=== PATIENT | female | born 1975 | race Two or more races ===

== ENCOUNTER → 2017-05-10 16:59 | Outpatient (CLI) | payer OTHER ==
[~2017-05-10 16:59] MED LIST: ALEVE220 M1 PO; ALEVE220 MG; ANAPROX275 MG PO; ARAVA10 MG; ASA81 MG; FLONASE16 GM NS; HUMIRA40 MG/0.8 SQ; INTESTINEX1 CAP PO; INTESTINEX680 MG PO; LEFLUNOMIDE10 MG PO; LEFLUNOMIDE20 MG PO; MILLIPRED5 MG; MILLIPRED5 MG PO; NEURONTIN300 MG PO; NEXIUM20 M1 PO; PERCOCET 5/3251 TAB PO; PREVACID15 MG PO; PROTONIX40 MG PO; SEPTRA DS TABLE1 TAB PO; TOBREX 0.30.15 MG/DR OP; TOPROL XL50 MG PO; TRILEPTAL150 MG; TRILEPTAL300 MG PO; URETRON DS1 TAB PO; ZANTAC150 MG PO; ZANTAC300 MG PO; ZITHROMAX500 MG PO; ZYRTEC10 MG PO
== END | disposition home or self-care (01) ==
LOC: LAB 16:59
DX: N39.0 Urinary tract infection, site not specified (principal)

== ENCOUNTER 2017-05-11 12:44 | Outpatient (CLI) | payer OTHER | END 2017-05-11 12:53 | disposition home or self-care (01) | LOC: SONOGRAMA 12:44 | DX: N39.0 Urinary tract infection, site not specified (principal) ==

== ENCOUNTER 2017-05-15 12:44 | Inpatient (IN) | payer OTHER ==
[~2017-05-15] VITALS: Ht 160 cm; Wt 93.4 kg
[2017-05-22] MEDS ORDERED: PREDNISONE10 MG PO (14:36)
[2017-05-22] MEDS ORDERED: Intestinex CAP PO (14:37)
== END 2017-05-22 16:13 | disposition home or self-care (01) | DRG 690 ==
LOC: ER 12:44 → SEC-K 14:42 → SURH 14:42
PROC: BW21ZZZ Computerized Tomography (CT Scan) of Abdomen and Pelvis (ICD-10-PCS; principal; 2017-05-15)
PROC: 8E0ZXY6 Isolation (ICD-10-PCS; 2017-05-15)
DX: N10 Acute pyelonephritis (principal); M05.79 Rheumatoid arthritis with rheumatoid factor of multiple sites without organ or systems involvement; Z79.899 Other long term (current) drug therapy; K52.89 Other specified noninfective gastroenteritis and colitis; G50.0 Trigeminal neuralgia; Z79.52 Long term (current) use of systemic steroids; B37.3 Candidiasis of vulva and vagina

== ENCOUNTER → 2017-06-05 | Outpatient (CLI) | payer OTHER ==
[~2017-06-05] MED LIST changes: +Intestinex CAP PO; +PREDNISONE10 MG PO
== END | disposition home or self-care (01) ==
LOC: PPHC LAB 18:47
DX: Z01.89 Encounter for other specified special examinations (principal)

== ENCOUNTER → 2017-06-05 | Outpatient (CLI) | payer OTHER ==
[~2017-06-05] VITALS: Ht 152.4 cm; Wt 93.4 kg
== END | disposition home or self-care (01) ==
LOC: PPHC 18:11
DX: J11.1 Influenza due to unidentified influenza virus with other respiratory manifestations (principal); N39.0 Urinary tract infection, site not specified

== ENCOUNTER 2017-06-06 09:58 | Outpatient (CLI) | payer OTHER | END 2017-06-06 17:00 | disposition home or self-care (01) | LOC: RAD 09:58 | DX: J11.1 Influenza due to unidentified influenza virus with other respiratory manifestations (principal) ==

== ENCOUNTER 2017-09-07 13:46 | Emergency (ER) | payer OTHER ==
[~2017-09-07] VITALS: Ht 160 cm; Wt 93.4 kg
== END 2017-09-07 19:45 | disposition home or self-care (01) ==
LOC: ER 13:46
DX: R42 Dizziness and giddiness (principal)

== ENCOUNTER 2017-09-15 08:08 | Outpatient (CLI) | payer OTHER | END 2017-09-15 15:19 | disposition home or self-care (01) | LOC: SONOGRAMA 08:08 | DX: N92.1 Excessive and frequent menstruation with irregular cycle (principal); N84.0 Polyp of corpus uteri; D25.9 Leiomyoma of uterus, unspecified ==

== ENCOUNTER 2017-10-23 08:46 | Outpatient (CLI) | payer OTHER | END 2017-10-23 10:26 | disposition home or self-care (01) | LOC: LAB 08:46 | DX: N83.291 Other ovarian cyst, right side (principal); N83.292 Other ovarian cyst, left side; D50.8 Other iron deficiency anemias; N92.0 Excessive and frequent menstruation with regular cycle; E03.8 Other specified hypothyroidism ==

== ENCOUNTER → 2017-11-23 11:22 | Outpatient (CLI) | payer OTHER | END | disposition home or self-care (01) | LOC: LAB 11:22 | DX: M05.79 Rheumatoid arthritis with rheumatoid factor of multiple sites without organ or systems involvement (principal) ==

== ENCOUNTER 2017-12-22 18:09 | Outpatient (CLI) | payer OTHER | END 2017-12-22 22:00 | disposition home or self-care (01) | LOC: RAD 18:09 | DX: M06.89 Other specified rheumatoid arthritis, multiple sites (principal); M17.11 Unilateral primary osteoarthritis, right knee; M17.12 Unilateral primary osteoarthritis, left knee ==

== ENCOUNTER → 2018-02-21 12:15 | Outpatient (CLI) | payer OTHER | END | disposition home or self-care (01) | LOC: LAB 12:15 | DX: J11.1 Influenza due to unidentified influenza virus with other respiratory manifestations (principal); N39.0 Urinary tract infection, site not specified ==

== ENCOUNTER 2018-02-21 15:00 | Outpatient (CLI) | payer OTHER | END 2018-02-21 15:11 | disposition home or self-care (01) | LOC: SONOGRAMA 15:00 | DX: R81 Glycosuria (principal) ==

== ENCOUNTER → 2018-03-19 | Outpatient (CLI) | payer OTHER | END | disposition home or self-care (01) | LOC: LAB 17:05 | DX: N30.00 Acute cystitis without hematuria (principal); R31.0 Gross hematuria ==

== ENCOUNTER 2018-04-02 07:10 | Outpatient (CLI) | payer OTHER | END 2018-04-02 07:20 | disposition home or self-care (01) | LOC: LAB 07:10 | DX: M05.79 Rheumatoid arthritis with rheumatoid factor of multiple sites without organ or systems involvement (principal) ==

== ENCOUNTER 2018-05-16 07:52 | Outpatient (CLI) | payer OTHER | END 2018-05-16 07:59 | disposition home or self-care (01) | LOC: LAB 07:52 | DX: N30.10 Interstitial cystitis (chronic) without hematuria (principal) ==

== ENCOUNTER 2018-05-24 16:11 | Outpatient (CLI) | payer OTHER | END 2018-05-24 16:14 | disposition home or self-care (01) | LOC: RAD 16:11 | DX: J32.8 Other chronic sinusitis (principal) ==

== ENCOUNTER 2018-06-06 05:45 | Day surgery (SDC) | payer OTHER ==
[~2018-06-06 05:45] MED LIST changes: +COZAAR50 MG PO; +ORENCIA125 MG/1 M SUBCUTANEO; +ORENITRAM ER0.125 MG PO; +PROBIOTIC1 EAC1 PO
== END 2018-06-06 14:50 | disposition home or self-care (01) ==
LOC: CIR.AMB 05:45
DX: N30.10 Interstitial cystitis (chronic) without hematuria (principal)

== ENCOUNTER 2018-07-19 16:17 | Outpatient (CLI) | payer OTHER | END 2018-07-19 16:20 | disposition home or self-care (01) | LOC: LAB 16:17 | DX: J11.1 Influenza due to unidentified influenza virus with other respiratory manifestations (principal); J06.9 Acute upper respiratory infection, unspecified ==

== ENCOUNTER 2018-09-11 10:02 | Emergency (ER) | payer OTHER ==
[~2018-09-11] VITALS: Ht 152.4 cm; Wt 95.7 kg
[2018-09-11] MEDS ORDERED: ATACAND HCT 161 EACH (10:58)
== END 2018-09-11 12:55 | disposition home or self-care (01) ==
LOC: ER 10:02
DX: M25.461 Effusion, right knee (principal); M25.462 Effusion, left knee; R42 Dizziness and giddiness; N39.0 Urinary tract infection, site not specified; I10 Essential (primary) hypertension

== ENCOUNTER 2018-09-13 07:23 | Outpatient (CLI) | payer OTHER ==
[~2018-09-13 07:23] MED LIST changes: +ATACAND HCT 161 EACH
== END 2018-09-13 08:01 | disposition home or self-care (01) ==
LOC: LAB 07:23
DX: M05.679 Rheumatoid arthritis of unspecified ankle and foot with involvement of other organs and systems (principal); I10 Essential (primary) hypertension

== ENCOUNTER 2018-09-15 07:33 | Outpatient (CLI) | payer OTHER | END 2018-09-15 15:34 | disposition home or self-care (01) | LOC: LAB 07:33 | DX: R80.8 Other proteinuria (principal) ==

== ENCOUNTER → 2018-09-20 07:49 | Outpatient (CLI) | payer OTHER | END | disposition home or self-care (01) | LOC: LAB 07:49 | DX: R80.8 Other proteinuria (principal) ==

== ENCOUNTER → 2018-10-02 12:09 | Outpatient (CLI) | payer OTHER | END | disposition home or self-care (01) | LOC: LAB 12:09 | DX: J11.1 Influenza due to unidentified influenza virus with other respiratory manifestations (principal); J00 Acute nasopharyngitis [common cold] ==

== ENCOUNTER 2018-10-23 07:35 | Outpatient (CLI) | payer OTHER | END 2018-10-23 07:47 | disposition home or self-care (01) | LOC: LAB 07:35 | DX: I10 Essential (primary) hypertension (principal); R80.8 Other proteinuria; M06.89 Other specified rheumatoid arthritis, multiple sites; D68.61 Antiphospholipid syndrome; M35.00 Sjogren syndrome, unspecified ==

== ENCOUNTER 2018-10-27 08:27 | Outpatient (CLI) | payer OTHER | END 2018-10-27 08:33 | disposition home or self-care (01) | LOC: SONOGRAMA 08:27 → MAMO-SONO 08:45 | DX: R80.8 Other proteinuria (principal); N18.2 Chronic kidney disease, stage 2 (mild) ==

== ENCOUNTER 2018-11-19 07:32 | Outpatient (CLI) | payer OTHER | END 2018-11-19 07:33 | disposition home or self-care (01) | LOC: NUCLEAR 07:32 | DX: R00.2 Palpitations (principal); I87.2 Venous insufficiency (chronic) (peripheral) ==

== ENCOUNTER 2019-02-05 07:47 | Outpatient (CLI) | payer OTHER | END 2019-02-05 07:51 | disposition home or self-care (01) | LOC: LAB 07:47 | DX: M05.79 Rheumatoid arthritis with rheumatoid factor of multiple sites without organ or systems involvement (principal) ==

== ENCOUNTER → 2019-02-12 15:54 | Outpatient (CLI) | payer OTHER | END | disposition home or self-care (01) | LOC: LAB 15:54 | DX: N08 Glomerular disorders in diseases classified elsewhere (principal) ==

== ENCOUNTER 2019-02-13 10:09 | Outpatient (CLI) | payer OTHER | END 2019-02-13 11:00 | disposition home or self-care (01) | LOC: SONOGRAMA 10:09 | DX: M77.12 Lateral epicondylitis, left elbow (principal) ==

== ENCOUNTER 2019-03-15 11:12 | Outpatient (CLI) | payer OTHER | END 2019-03-15 15:00 | disposition home or self-care (01) | LOC: LAB 11:12 | DX: J11.1 Influenza due to unidentified influenza virus with other respiratory manifestations (principal); N39.0 Urinary tract infection, site not specified ==

== ENCOUNTER 2019-05-20 07:34 | Outpatient (CLI) | payer OTHER | END 2019-05-20 15:52 | disposition home or self-care (01) | LOC: LAB 07:34 | DX: E55.9 Vitamin D deficiency, unspecified (principal); C90.00 Multiple myeloma not having achieved remission ==

== ENCOUNTER 2019-05-27 10:37 | Outpatient (CLI) | payer OTHER | END 2019-05-27 15:00 | disposition home or self-care (01) | LOC: LAB 10:37 | DX: N18.2 Chronic kidney disease, stage 2 (mild) (principal); I10 Essential (primary) hypertension; R80.8 Other proteinuria; C90.00 Multiple myeloma not having achieved remission ==

== ENCOUNTER 2019-06-06 12:16 | Emergency (ER) | payer OTHER ==
[~2019-06-06] VITALS: Ht 160 cm; Wt 95.7 kg
== END 2019-06-06 17:29 | disposition home or self-care (01) ==
LOC: ER 12:16
DX: S00.83XA Contusion of other part of head, initial encounter (principal); R42 Dizziness and giddiness; W18.09XA Striking against other object with subsequent fall, initial encounter; Y93.89 Activity, other specified; Y92.89 Other specified places as the place of occurrence of the external cause; Y99.8 Other external cause status

== ENCOUNTER 2019-06-14 09:29 | Outpatient (CLI) | payer OTHER | END 2019-06-14 09:38 | disposition home or self-care (01) | LOC: LAB 09:29 | DX: J11.1 Influenza due to unidentified influenza virus with other respiratory manifestations (principal); R10.84 Generalized abdominal pain ==

== ENCOUNTER 2019-06-25 07:25 | Outpatient (CLI) | payer OTHER | END 2019-06-25 07:31 | disposition home or self-care (01) | LOC: LAB 07:25 | DX: C90.00 Multiple myeloma not having achieved remission (principal); D59.1 Other autoimmune hemolytic anemias; D89.1 Cryoglobulinemia; M05.80 Other rheumatoid arthritis with rheumatoid factor of unspecified site; M32.8 Other forms of systemic lupus erythematosus; M05.29 Rheumatoid vasculitis with rheumatoid arthritis of multiple sites ==

== ENCOUNTER → 2019-07-04 13:41 | Outpatient (CLI) | payer OTHER | END | disposition home or self-care (01) | LOC: LAB 13:41 | DX: J11.1 Influenza due to unidentified influenza virus with other respiratory manifestations (principal) ==

== ENCOUNTER 2019-11-27 07:18 | Outpatient (CLI) | payer OTHER | END 2019-11-27 07:23 | disposition home or self-care (01) | LOC: LAB 07:18 | PROVIDERS: ATTEND Internal Medicine Nephrology | DX: N18.1 Chronic kidney disease, stage 1 (principal); R80.8 Other proteinuria; Z20.828 Contact with and (suspected) exposure to other viral communicable diseases ==

== ENCOUNTER → 2019-12-16 15:53 | Outpatient (CLI) | payer OTHER | END | disposition home or self-care (01) | LOC: LAB 15:53 | PROVIDERS: ATTEND General Practice | DX: R00.2 Palpitations (principal) ==

== ENCOUNTER → 2019-12-17 10:52 | Outpatient (CLI) | payer OTHER | END | disposition home or self-care (01) | LOC: LAB 10:52 | PROVIDERS: ATTEND General Practice | DX: J11.1 Influenza due to unidentified influenza virus with other respiratory manifestations (principal); Z20.828 Contact with and (suspected) exposure to other viral communicable diseases; Z11.59 Encounter for screening for other viral diseases ==

== ENCOUNTER 2020-01-21 09:08 | Outpatient (CLI) | payer OTHER | END 2020-01-21 09:12 | disposition home or self-care (01) | LOC: LAB 09:08 | PROVIDERS: ATTEND Urology | DX: N30.00 Acute cystitis without hematuria (principal) ==

== ENCOUNTER 2020-03-23 10:21 | Emergency (ER) | payer OTHER ==
[~2020-03-23] VITALS: Ht 160 cm; Wt 95.7 kg
== END 2020-03-23 15:07 | disposition home or self-care (01) ==
LOC: ER 10:21
DX: B34.9 Viral infection, unspecified (principal); J22 Unspecified acute lower respiratory infection; Z03.818 Encounter for observation for suspected exposure to other biological agents ruled out

== ENCOUNTER → 2020-05-12 | Outpatient (CLI) | payer OTHER ==
[~2020-05-12] MED LIST changes: +CYMBALTA30 MG PO; +MULTI VITAMIN1 EACH PO; +NABUMETONE750 MG PO; +NEXIUM 24HR20 M1 PO; +PROBIOTIC1 EAC2 PO; +ROBAXIN-750750 MG PO
== END | disposition home or self-care (01) ==
LOC: OFIC 805 11:56
PROVIDERS: ATTEND Otolaryngology
DX: R42 Dizziness and giddiness (principal); H93.8X2 Other specified disorders of left ear; G44.89 Other headache syndrome

== ENCOUNTER 2020-05-18 05:53 | Day surgery (SDC) | payer OTHER | END 2020-05-18 18:30 | disposition home or self-care (01) | LOC: CIR.AMB 05:53 | PROVIDERS: ATTEND Otolaryngology | DX: H90.42 Sensorineural hearing loss, unilateral, left ear, with unrestricted hearing on the contralateral side (principal); Z20.828 Contact with and (suspected) exposure to other viral communicable diseases ==

== ENCOUNTER 2020-06-02 15:29 | Outpatient (CLI) | payer OTHER | END 2020-06-02 17:18 | disposition home or self-care (01) | LOC: OFIC 805 15:29 | PROVIDERS: ATTEND Otolaryngology | DX: H69.82 Other specified disorders of Eustachian tube, left ear (principal); R42 Dizziness and giddiness; H93.8X2 Other specified disorders of left ear ==

== ENCOUNTER 2020-06-03 07:45 | Outpatient (CLI) | payer OTHER | END 2020-06-03 07:51 | disposition home or self-care (01) | LOC: LAB 07:45 | PROVIDERS: ATTEND Internal Medicine Rheumatology | DX: M05.19 Rheumatoid lung disease with rheumatoid arthritis of multiple sites (principal); C88.8 Other malignant immunoproliferative diseases; N18.1 Chronic kidney disease, stage 1; I10 Essential (primary) hypertension; R80.8 Other proteinuria ==

== ENCOUNTER → 2020-08-31 07:47 | Outpatient (CLI) | payer OTHER | END | disposition home or self-care (01) | LOC: LAB 07:47 | PROVIDERS: ATTEND Internal Medicine Rheumatology | DX: M05.79 Rheumatoid arthritis with rheumatoid factor of multiple sites without organ or systems involvement (principal) ==

== ENCOUNTER 2020-09-24 12:56 | Outpatient (CLI) | payer OTHER | END 2020-09-24 13:21 | disposition home or self-care (01) | LOC: OFIC 805 12:56 | PROVIDERS: ATTEND Otolaryngology | DX: F41.8 Other specified anxiety disorders (principal); H69.82 Other specified disorders of Eustachian tube, left ear; R42 Dizziness and giddiness; H93.8X2 Other specified disorders of left ear ==

== ENCOUNTER → 2020-12-02 08:01 | Outpatient (CLI) | payer OTHER | END | disposition home or self-care (01) | LOC: LAB 08:01 | PROVIDERS: ATTEND Internal Medicine Rheumatology | DX: M05.79 Rheumatoid arthritis with rheumatoid factor of multiple sites without organ or systems involvement (principal); E55.9 Vitamin D deficiency, unspecified; N18.2 Chronic kidney disease, stage 2 (mild); I10 Essential (primary) hypertension; R80.8 Other proteinuria ==

== ENCOUNTER 2020-12-21 08:00 | Outpatient (CLI) | payer OTHER | END 2020-12-21 08:30 | disposition home or self-care (01) | LOC: PPH VACUNA 08:00 | DX: Z23 Encounter for immunization (principal) ==

== ENCOUNTER 2020-12-30 10:07 | Outpatient (CLI) | payer OTHER | END 2020-12-30 10:09 | disposition home or self-care (01) | LOC: NUCLEAR 10:07 | PROVIDERS: ATTEND Internal Medicine Rheumatology | DX: M25.50 Pain in unspecified joint (principal) | CPT/HCPCS: 78315; A9503 ==

== ENCOUNTER → 2021-03-02 09:25 | Outpatient (CLI) | payer OTHER ==
[~2021-03-02 09:25] MED LIST changes: +LYRICA50 MG PO
== END | disposition home or self-care (01) ==
LOC: LAB 09:25
PROVIDERS: ATTEND Internal Medicine Hematology & Oncology
DX: M79.7 Fibromyalgia (principal); D63.8 Anemia in other chronic diseases classified elsewhere; D47.2 Monoclonal gammopathy; C88.8 Other malignant immunoproliferative diseases

== ENCOUNTER 2021-03-16 08:56 | Outpatient (CLI) | payer OTHER | END 2021-03-16 08:57 | disposition home or self-care (01) | LOC: LAB 08:56 | PROVIDERS: ATTEND Internal Medicine Hematology & Oncology | DX: C90.00 Multiple myeloma not having achieved remission (principal); C88.8 Other malignant immunoproliferative diseases; P59.1 Inspissated bile syndrome ==

== ENCOUNTER 2021-04-28 07:31 | Outpatient (CLI) | payer OTHER | END 2021-04-28 07:33 | disposition home or self-care (01) | LOC: LAB 07:31 | PROVIDERS: ATTEND Internal Medicine Rheumatology | DX: M05.79 Rheumatoid arthritis with rheumatoid factor of multiple sites without organ or systems involvement (principal); N18.2 Chronic kidney disease, stage 2 (mild); I10 Essential (primary) hypertension; R80.8 Other proteinuria ==

== ENCOUNTER 2021-06-18 08:05 | Outpatient (CLI) | payer OTHER | END 2021-06-18 15:39 | disposition home or self-care (01) | LOC: LAB 08:05 | PROVIDERS: ATTEND Internal Medicine | DX: E03.9 Hypothyroidism, unspecified (principal); I10 Essential (primary) hypertension; M54.50 Low back pain, unspecified; Z01.810 Encounter for preprocedural cardiovascular examination; E55.9 Vitamin D deficiency, unspecified; E11.51 Type 2 diabetes mellitus with diabetic peripheral angiopathy without gangrene; G62.9 Polyneuropathy, unspecified; F41.9 Anxiety disorder, unspecified; M06.9 Rheumatoid arthritis, unspecified ==

== ENCOUNTER 2021-08-23 12:31 | Outpatient (CLI) | payer OTHER ==
[~2021-08-23 12:31] MED LIST changes: +MEDROLPACK PO; +METHOCARBAMOL500 MG PO
== END 2021-08-23 12:34 | disposition home or self-care (01) ==
LOC: SONOGRAMA 12:31
PROVIDERS: ATTEND Pathology Anatomic Pathology & Clinical Pathology
DX: E04.2 Nontoxic multinodular goiter (principal)

== ENCOUNTER 2021-09-10 08:10 | Outpatient (CLI) | payer OTHER | END 2021-09-10 08:11 | disposition home or self-care (01) | LOC: LAB 08:10 | PROVIDERS: ATTEND Internal Medicine Hematology & Oncology | DX: M05.79 Rheumatoid arthritis with rheumatoid factor of multiple sites without organ or systems involvement (principal); E55.9 Vitamin D deficiency, unspecified; C90.00 Multiple myeloma not having achieved remission; D64.9 Anemia, unspecified; M79.9 Soft tissue disorder, unspecified; D47.2 Monoclonal gammopathy; M05.20 Rheumatoid vasculitis with rheumatoid arthritis of unspecified site; R74.9 Abnormal serum enzyme level, unspecified ==

== ENCOUNTER 2021-10-18 08:10 | Outpatient (CLI) | payer OTHER | END 2021-10-18 08:11 | disposition home or self-care (01) | LOC: LAB 08:10 | PROVIDERS: ATTEND Internal Medicine | DX: I10 Essential (primary) hypertension (principal); M54.50 Low back pain, unspecified; Z01.810 Encounter for preprocedural cardiovascular examination; E03.9 Hypothyroidism, unspecified; E55.9 Vitamin D deficiency, unspecified; E11.51 Type 2 diabetes mellitus with diabetic peripheral angiopathy without gangrene; G62.9 Polyneuropathy, unspecified; F41.9 Anxiety disorder, unspecified; M06.9 Rheumatoid arthritis, unspecified ==

== ENCOUNTER 2021-11-01 14:36 | Outpatient (CLI) | payer OTHER | END 2021-11-01 14:38 | disposition home or self-care (01) | LOC: LAB 14:36 | PROVIDERS: ATTEND Specialist | DX: L02.91 Cutaneous abscess, unspecified (principal) ==

== ENCOUNTER 2021-11-24 08:21 | Outpatient (CLI) | payer OTHER | END 2021-11-24 13:53 | disposition home or self-care (01) | LOC: LAB 08:21 | PROVIDERS: ATTEND Internal Medicine Nephrology | DX: N18.2 Chronic kidney disease, stage 2 (mild) (principal); I10 Essential (primary) hypertension; F11.21 Opioid dependence, in remission; R80.9 Proteinuria, unspecified ==

== ENCOUNTER 2021-11-24 09:41 | Outpatient (CLI) | payer OTHER | END 2021-11-24 09:56 | disposition home or self-care (01) | LOC: SONOGRAMA 09:41 | PROVIDERS: ATTEND Internal Medicine Nephrology | DX: N18.2 Chronic kidney disease, stage 2 (mild) (principal) ==

== ENCOUNTER 2022-02-10 08:23 | Outpatient (CLI) | payer OTHER | END 2022-02-10 08:24 | disposition home or self-care (01) | LOC: LAB 08:23 | PROVIDERS: ATTEND Internal Medicine | DX: M54.50 Low back pain, unspecified (principal); E55.9 Vitamin D deficiency, unspecified; E03.9 Hypothyroidism, unspecified; G62.9 Polyneuropathy, unspecified; F41.9 Anxiety disorder, unspecified; M06.9 Rheumatoid arthritis, unspecified ==

== ENCOUNTER 2022-03-23 07:06 | Outpatient (CLI) | payer OTHER | END 2022-03-23 12:33 | disposition home or self-care (01) | LOC: LAB 07:06 | PROVIDERS: ATTEND Internal Medicine Hematology & Oncology | DX: D63.8 Anemia in other chronic diseases classified elsewhere (principal); M79.7 Fibromyalgia; M05.29 Rheumatoid vasculitis with rheumatoid arthritis of multiple sites; D47.2 Monoclonal gammopathy ==

== ENCOUNTER 2022-08-23 10:35 | Emergency (ER) | payer OTHER ==
[~2022-08-23] VITALS: Ht 160 cm; Wt 106.6 kg
[2022-08-23] MEDS ORDERED: SYNTHROID50 MCG PO (11:14)
[2022-08-23] MEDS ORDERED: ARAVA10 MG PO (11:15)
[2022-08-23] MEDS ORDERED: PAXLOVID 300-11 EACH PO (14:12)
[2022-08-23] MEDS ORDERED: OSEL75CA PO (14:12)
== END 2022-08-23 17:54 | disposition home or self-care (01) ==
LOC: ER 10:35
DX: J45.901 Unspecified asthma with (acute) exacerbation (principal); U07.1 COVID-19; R06.02 Shortness of breath; R53.81 Other malaise; I10 Essential (primary) hypertension; E03.8 Other specified hypothyroidism; Z88.8 Allergy status to other drugs, medicaments and biological substances; Z88.1 Allergy status to other antibiotic agents

== ENCOUNTER 2023-02-15 08:20 | Outpatient (CLI) | payer OTHER ==
[~2023-02-15 08:20] MED LIST changes: +ARAVA10 MG PO; +OSEL75CA PO; +PAXLOVID 300-11 EACH PO; +SYNTHROID50 MCG PO
== END 2023-02-15 08:33 | disposition home or self-care (01) ==
LOC: TOM 08:20
PROVIDERS: ATTEND Internal Medicine Gastroenterology
DX: Z80.0 Family history of malignant neoplasm of digestive organs (principal); Z12.11 Encounter for screening for malignant neoplasm of colon; K56.600 Partial intestinal obstruction, unspecified as to cause

== ENCOUNTER 2023-03-29 09:05 | Outpatient (CLI) | payer OTHER | END 2023-03-29 09:15 | disposition home or self-care (01) | LOC: RX STUDY 09:05 | PROVIDERS: ATTEND Internal Medicine Gastroenterology | DX: K21.9 Gastro-esophageal reflux disease without esophagitis (principal); K30 Functional dyspepsia ==

== ENCOUNTER → 2023-05-08 07:35 | Outpatient (CLI) | payer OTHER ==
[2023-05-08 08:36] LABS: URINE APPEARANCE Clear; URINE BILIRRUBIN Negative (NEGATIVE); URINE BLOOD Negative; URINE COLOR Yellow; URINE GLUCOSE Negative (NEGATIVE); URINE LEUKOCYTE Negative; URINE NITRATE Negative; URINE PROTEIN Negative (NEGATIVE); URINE UROBILINOGEN 0.2 E.U./dl
[2023-05-08 08:38] LABS: HEMATOCRIT 37.8 % (36.0-45.00); HEMOGLOBIN 12.7 g/dL (12.0-15.00); MEAN CELL VOLUME 84.5 fL (80.00-100.00); MEAN CORPUSCULAR HEMOGLOBIN 28.5 pg (27.00-32.0); MEAN CORPUSCULAR HGB CONC 33.7 g/dl (32.0-36.0); PLATELET COUNT 316 K/uL (150-450); RED BLOOD COUNT 4.47 M/uL (4.00-6.00); RED CELL DISTRIBUTION WIDTH 14.4 % (11.5-14.5)
[2023-05-08 08:40] LABS: URINE BACTERIA 362.8 uL (0.0-1933); URINE EPITHELIAL CELLS 20.5 uL (0.0-38.8); URINE RBC 19.2 uL (0.0-20.8)
[2023-05-08 09:12] LABS: ALBUMIN 3.7 gm/dL (3.4-5.0); CALCIUM 8.8 mg/dL (8.5-10.1); CHOL HDL RATIO 4.2 (0-5.0); CREATININE SERUM 0.9 mg/dL (0.55-1.02); GFR 66.27; PHOSPHOROUS 3.3 mg/dL (2.5-4.9); POTASSIUM 3.96 mEq/L (3.5-5.1); TSH 2.64 uIU/mL (0.358-3.74)
== END | disposition home or self-care (01) ==
LOC: LAB 07:35
PROVIDERS: ATTEND Internal Medicine Nephrology
DX: I10 Essential (primary) hypertension (principal); E11.21 Type 2 diabetes mellitus with diabetic nephropathy; R80.9 Proteinuria, unspecified; L95.9 Vasculitis limited to the skin, unspecified; N18.2 Chronic kidney disease, stage 2 (mild); E24.9 Cushing's syndrome, unspecified; E03.9 Hypothyroidism, unspecified; H46.8 Other optic neuritis; M06.9 Rheumatoid arthritis, unspecified; M35.00 Sjogren syndrome, unspecified; E11.40 Type 2 diabetes mellitus with diabetic neuropathy, unspecified

== ENCOUNTER 2023-05-31 10:43 | Emergency (ER) | payer OTHER ==
[~2023-05-31] VITALS: Ht 160 cm; Wt 106.6 kg
[2023-05-31] MEDS ORDERED: ORENCIA125 MG/1 M SQ (11:05)
[2023-05-31] MEDS ORDERED: 0.9 % SODIUM CHLORIDE 1,000 ML IV STA (11:59)
[2023-05-31 12:54] LABS: HEMOGLOBIN 12.3 g/dL (12.0-15.00); MEAN CELL VOLUME 84.2 fL (80.00-100.00); MEAN CORPUSCULAR HEMOGLOBIN 28.1 pg (27.00-32.0); MEAN CORPUSCULAR HGB CONC 33.4 g/dl (32.0-36.0); PLATELET COUNT 283 K/uL (150-450); RED BLOOD COUNT 4.39 M/uL (4.00-6.00); RED CELL DISTRIBUTION WIDTH 14.4 % (11.5-14.5)
[2023-05-31 12:56] LABS: ERYTHROCYTE SEDIMENTATION RATE 84 mm/hr
[2023-05-31 13:22] LABS: ALBUMIN 3.5 gm/dL (3.4-5.0); BILIRUBIN TOTAL 0.68 mg/dL (0.3-1.2); BILIRUBIN,CONJUGATED 0.14 mg/dL (0.0-0.2); BILIRUBIN,UNCONJUGATED 0.54 mg/dL (0.0-0.6); CALCIUM 8.9 mg/dL (8.5-10.1); CREATININE SERUM 0.97 mg/dL (0.55-1.02); GFR 60.79; POTASSIUM 3.65 mEq/L (3.5-5.1); TOTAL PROTEIN 7.7 gm/dL (6.4-8.2)
[2023-05-31 13:47] LABS: URINE APPEARANCE Clear; URINE BILIRRUBIN Negative (NEGATIVE); URINE BLOOD Negative; URINE COLOR Yellow; URINE GLUCOSE Negative (NEGATIVE); URINE LEUKOCYTE Small; URINE NITRATE Negative; URINE PROTEIN Negative (NEGATIVE); URINE UROBILINOGEN 0.2 E.U./dl
[2023-05-31 13:50] LABS: URINE BACTERIA 1225.7 uL (0.0-1933); URINE EPITHELIAL CELLS 19.4 uL (0.0-38.8); URINE RBC 6.7 uL (0.0-20.8); URINE WBC 15.9 uL (0.0-23.2)
[2023-05-31] MEDS ORDERED: LOPERAMIDE HCL 2 MG CAPSULE PO STA (16:18)
[2023-05-31] MEDS ORDERED: FAMOTIDINE/PF 20 MG in 0.9 % SODIUM CHLORIDE 8 ML IV PUSH STA (19:32)
[2023-05-31] MEDS ORDERED: KETOROLAC TROMETHAMINE 30 MG VIAL IV ONE (19:45)
[2023-05-31] MEDS ORDERED: ONDANSETRON HCL 2 MG/ML VIAL IV ONE (19:45)
[2023-05-31] MEDS ORDERED: DIPHENOXYLATE HCL/ATROPINE 1 UDTAB TABLET PO ONE (19:45)
[2023-05-31] MEDS ORDERED: DICY20TA PO (22:45)
== END 2023-05-31 22:47 | disposition home or self-care (01) ==
LOC: ER 10:43
PROVIDERS: General Practice
DX: K52.89 Other specified noninfective gastroenteritis and colitis (principal); Z88.8 Allergy status to other drugs, medicaments and biological substances; M19.90 Unspecified osteoarthritis, unspecified site; F32.89 Other specified depressive episodes; E03.9 Hypothyroidism, unspecified; M79.7 Fibromyalgia
CPT/HCPCS: 36415; 74177; 96365; 96366; 99284; J1885; J3490; J7030; Q9965

== ENCOUNTER 2024-01-10 12:38 | Outpatient (CLI) | payer OTHER ==
[~2024-01-10 12:38] MED LIST changes: +DICY20TA PO; +ORENCIA125 MG/1 M SQ
== END 2024-01-10 12:48 | disposition home or self-care (01) ==
LOC: RAD 12:38
PROVIDERS: ATTEND Internal Medicine
DX: M79.672 Pain in left foot (principal)

== ENCOUNTER 2024-03-19 10:54 | Outpatient (CLI) | payer OTHER | END 2024-03-19 11:10 | disposition home or self-care (01) | LOC: SONOGRAMA 10:54 | PROVIDERS: ATTEND Internal Medicine | DX: R22.1 Localized swelling, mass and lump, neck (principal); M54.12 Radiculopathy, cervical region ==

== ENCOUNTER 2024-09-13 09:13 | Outpatient (CLI) | payer OTHER ==
[2024-09-13 11:02] LABS: D DIMER 0.79 MG/L; INR 1.03; PARTIAL THROMBOPLASTIN TIME 29.1 SECONDS (22.0-34.0); PROTHROMBIN TIME 11.2 SECONDS (9.0-11.5)
== END 2024-09-13 14:42 | disposition home or self-care (01) ==
LOC: LAB 09:13
PROVIDERS: ATTEND Internal Medicine Hematology & Oncology
DX: D68.8 Other specified coagulation defects (principal); D65 Disseminated intravascular coagulation [defibrination syndrome]; D68.4 Acquired coagulation factor deficiency

== ENCOUNTER 2025-01-09 12:38 | Outpatient (CLI) | payer OTHER | END 2025-01-09 12:46 | disposition home or self-care (01) | LOC: SONOGRAMA 12:38 | PROVIDERS: ATTEND Internal Medicine | DX: E03.9 Hypothyroidism, unspecified (principal) ==